=== PATIENT | female | born 1940 | race Caucasian/White ===

== ENCOUNTER 2019-06-24 14:39 | Emergency (ER) | payer MEDICARE, OTHER ==
[~2019-06-24] VITALS: Ht 162.6 cm; Wt 62.1 kg
--- NOTE | 2019-06-24 14:39 | NUR ---
[facility]ANN [facility],FOUND ON THE FLOOR BY STAFF WITH SCALP LACERATION THIS MORNING. TO ER BED 9, HOOKED TO MONITOR, CHANGED TO HOSP GOWN, PROVIDED W WARM BLANKET. PATIENT NOT ANSWERING QUESTIONS. AWAITING MD JAMES.
--- NOTE | 2019-06-24 14:54 | NUR ---
DR ADAMES AT BEDSIDE
[2019-06-24] MEDS ORDERED: TDAP [DIPH/PERTUSSIS/TET] 0.5 ML VIAL IM ONE ×2 (15:00→16:08)
[2019-06-24] MEDS ORDERED: BACI/NEOM/POLY B OINT PKT 1 UDPKT PACKET TP ONE (15:00)
--- NOTE | 2019-06-24 15:20 | NUR ---
REFUSED CT SCAN. MADE MD AWARE
[2019-06-24] MEDS ORDERED: LORAZEPAM INJ 2 MG/ML VIAL IM ONE (15:30)
[2019-06-24] MEDS ORDERED: LORAZEPAM INJ 2 MG/ML VIAL ONE (16:01)
[2019-06-24] MEDS ORDERED: BACI/NEOM/POLY B OINT PKT 1 UDPKT PACKET ONE (16:08)
--- NOTE | 2019-06-24 17:10 | NUR ---
PER RADIOLOGY DEPT, CT SCAN NOT WORKING (NOT SHOWING IMAGES), RADIOLOGY DEPT ALREADY CONTACTED [facility].
--- NOTE | 2019-06-24 17:57 | NUR ---
PATIENT BACK FROM CT SCAN
--- NOTE | 2019-06-24 18:19 | NUR ---
per Dwain Vega eta is . Trip # [id number]
--- NOTE | 2019-06-24 18:44 | NUR ---
REPORT GIVEN TO UZAIR DRILLER OPERATOR OF [facility]
--- NOTE | 2019-06-24 19:25 | NUR ---
PT RECEIVED FROM HERNESTO SILVA FOR [facility]
--- NOTE | 2019-06-24 19:25 | NUR ---
REPORT GIVEN TO AYDEE ERIC FOR [facility]
--- NOTE | 2019-06-24 20:20 | NUR ---
pt in bed sleeping
--- NOTE | 2019-06-24 21:04 | NUR ---
ambulanz 110 at bedside fro transport to [facility]. report given
[2019-06-24 21:07] VITALS: BP 110/59
== END 2019-06-24 21:07 | disposition home or self-care (01) ==
LOC: ER 14:49
DX: S01.01XA Laceration without foreign body of scalp, initial encounter (principal); I10 Essential (primary) hypertension; F03.90 Unspecified dementia, unspecified severity, without behavioral disturbance, psychotic disturbance, mood disturbance, and anxiety; F41.9 Anxiety disorder, unspecified; Z88.0 Allergy status to penicillin; Z88.8 Allergy status to other drugs, medicaments and biological substances; W19.XXXA Unspecified fall, initial encounter; Y93.89 Activity, other specified; Y92.89 Other specified places as the place of occurrence of the external cause; Y99.8 Other external cause status
CPT/HCPCS: 70450; 90471; 90715; 96372; 99284; J2060